=== PATIENT | male | born 1950 | race Caucasian/White ===

== ENCOUNTER 2016-02-11 18:45 | Inpatient (IN) | payer MEDICARE, OTHER ==
[~2016-02-11] VITALS: Ht 162.6 cm; Wt 69.2 kg
[~2016-02-11 18:45] MED LIST: BENZ1TAB PO; DIVA250T8 OR; DIVA500T8 OR; LITH300 OR; LORA1TAB PO; TRIF2TAB PO; ZIPR80CA PO
[2016-02-11 19:10] VITALS: BP 149/69; PULSE 70; RESP 15; TEMP 98.1
--- NOTE | 2016-02-11 19:56 | PD ---
HPI Chief Complaint: Psychiatric Symptoms Time Seen by Provider: 19:53 Travel History International Travel<30 days: No Contact w/Intl Traveler<30days: No Traveled to known affect area: No History of Present Illness HPI Patient is a 65-year-old male with a history of schizophrenia, bipolar disorder , depression and anxiety and previous suicide attempts brought out a Venegas act for suicidality. The patient reportedly told someone at the prison he resides at that he wants " pills". He states that he has nothing to live for. Per the report and his family all in her 60s and he feels that it is time for him to go. He denies any attempts. He denies any current medical problems. In fact when asked if anything is wrong the only thing he is insistent on receiving his a cup of coffee and " pills". He denies any noncompliance with his medication. He denies taking any excessive medication or ethanol or illicit drugs. He does smoke. PFSH Past Medical History Medical History: Unable to Obtain Arthritis: Yes Blood Disorders: No Bipolar Disorder: Yes Anxiety: Yes Depression: Yes Cancer: No Cardiovascular Problems: Yes High Cholesterol: Yes Chest Pain: Yes Congestive Heart Failure: Yes Diabetes: No Diminished Hearing: No Endocrine: No Gastrointestinal Disorders: Yes GERD: Yes Genitourinary: No Hypertension: Yes Immune Disorder: No Musculoskeletal: Yes Neurologic: No Psychiatric: Yes Reproductive: No Respiratory: No Schizophrenia: Yes Ulcer: Yes Past Surgical History Surgical History: Unable to Obtain Social History Alcohol Use: No Tobacco Use: Yes (1PPD) Substance Use: No Allergies-Medications (Allergen,Severity, Reaction): Coded Allergies: No Known Allergies (Verified , 02/11/16) Reported Meds & Prescriptions Reported Meds & Active Scripts Active Reported Ziprasidone Hcl 80 Mg Cap 80 Mg PO BID Trifluoperazine Hcl (Trifluoperazine HCl) 2 Mg Tab 2 Mg PO BID Lorazepam 1 Mg Tab 1 Mg PO BID [place] Carbonate 300 Mg Tab 600 Mg OR HS [place] Carbonate 300 Mg Tab 300 Mg OR DAILY Divalproex Sodium 500 Mg Tab 500 Mg OR HS Divalproex Sodium 250 Mg Tab 250 Mg OR DAILY Cogentin (Benztropine Mesylate) 2 Mg Tab 2 Mg PO HS Review of Systems General / Constitutional: No: Fever Cardiovascular: No: Chest Pain or Discomfort Respiratory: No: Shortness of Breath Gastrointestinal: No: Abdominal Pain Neurologic: No: Syncope Psychiatric: Positive: Other (see the history of present illness) Physical Exam Narrative GENERAL: Well-developed and well-nourished adult male in no acute distress. SKIN: Warm and dry. Good turgor without tenting. HEAD: Normocephalic and atraumatic. EYES: PERRL bilaterally, 5mm. EOMI bilaterally. No injection or icterus present. No proptosis. Lids without edema or erythema. ENT: Buccal mucosa pink and moist. Oropharynx free of erythema, tonsillar hypertrophy, masses, swelling, asymmetry and exudates. Uvula midline and airway patent. NECK: Supple, no meningeal signs. Trachea midline, no JVD. No cervical or facial lymphadenopathy. CARDIOVASCULAR: Regular rate and rhythm without murmurs, rubs, clicks or gallops. Radial and posterior tibial pulses 2+ bilaterally. No pedal edema. RESPIRATORY: Clear to auscultation bilaterally with symmetrical rise and fall, no distress or use of accessory muscles. GASTROINTESTINAL: Non-tender, non-distended. Normal bowel sounds all 4 quadrants. No masses or organomegaly present. MUSCULOSKELETAL: No gait disturbances. Patient freely moving all four extremities spontaneously. Extremities without clubbing, cyanosis, or edema. No obvious deformities. NEUROLOGIC: CN II-XII grossly intact. Awake and alert. Motor grossly within normal limits. Normal speech. PSYCHIATRIC: Argumentative. Suicidal. Data Data Last Documented VS Vital Signs Date Time Temp Pulse Resp B/P Pulse Ox O2 Delivery O2 Flow Rate FiO2 02/11/16 19:10 98.1 70 15 149/69 Orders Complete Blood Count With Diff (02/11/16 19:51) Comprehensive Metabolic Panel (02/11/16 19:51) Drug Screen, Random Urine (02/11/16 19:51) Alcohol (Ethanol) (02/11/16 19:51) Salicylates (Aspirin) (02/11/16 19:51) Tylenol (Acetaminophen) (02/11/16 19:51) Psych Screen (02/11/16 19:51) Aucilla (Li) (02/11/16 19:51) Valproic Acid (Depakene) (02/11/16 21:29) Labs Laboratory Tests Test 02/11/16 20:20 White Blood Count 6.6 TH/MM3 Red Blood Count 3.87 MIL/MM3 Hemoglobin 12.4 GM/DL Hematocrit 37.3 % Mean Corpuscular Volume 96.4 FL Mean Corpuscular Hemoglobin 32.2 PG Mean Corpuscular Hemoglobin 33.4 % Concent Red Cell Distribution Width 13.6 % Platelet Count 207 TH/MM3 Mean Platelet Volume 10.2 FL Neutrophils (%) (Auto) 48.3 % Lymphocytes (%) (Auto) 31.9 % Monocytes (%) (Auto) 13.5 % Eosinophils (%) (Auto) 5.8 % Basophils (%) (Auto) 0.5 % Neutrophils # (Auto) 3.2 TH/MM3 Lymphocytes # (Auto) 2.1 TH/MM3 Monocytes # (Auto) 0.9 TH/MM3 Eosinophils # (Auto) 0.4 TH/MM3 Basophils # (Auto) 0.0 TH/MM3 CBC Comment DIFF FINAL Differential Comment Sodium Level 133 MEQ/L Potassium Level 4.4 MEQ/L Chloride Level 100 MEQ/L Carbon Dioxide Level 26.2 MEQ/L Anion Gap 7 MEQ/L Blood Urea Nitrogen 10 MG/DL Creatinine 1.16 MG/DL Estimat Glomerular Filtration 63 ML/MIN Rate Random Glucose 76 MG/DL Calcium Level 8.4 MG/DL Total Bilirubin 0.2 MG/DL Aspartate Amino Transf 11 U/L (AST/SGOT) Alanine Aminotransferase 12 U/L (ALT/SGPT) Alkaline Phosphatase 68 U/L Total Protein 6.4 GM/DL Albumin 3.4 GM/DL Salicylates Level 1.9 MG/DL Urine Opiates Screen NEG Acetaminophen Level LESS THAN 2.0 MCG/ML Urine Barbiturates Screen NEG Valproic Acid (Depakene) Level 31 MCG/ML Urine Amphetamines Screen NEG Urine Benzodiazepines Screen NEG [place] Level 0.8 MEQ/L Urine Cocaine Screen NEG Urine Cannabinoids Screen NEG Ethyl Alcohol Level LESS THAN 3 MG/DL MDM Medical Decision Making Medical Screen Exam Complete: Yes Emergency Medical Condition: Yes Interpretation(s) Laboratory Tests Test 02/11/16 20:20 White Blood Count 6.6 TH/MM3 (4.0-11.0) Red Blood Count 3.87 MIL/MM3 (4.50-5.90) Hemoglobin 12.4 GM/DL (13.0-17.0) Hematocrit 37.3 % (39.0-51.0) Mean Corpuscular Volume 96.4 FL (80.0-100.0) Mean Corpuscular Hemoglobin 32.2 PG (27.0-34.0) Mean Corpuscular Hemoglobin 33.4 % Concent (32.0-36.0) Red Cell Distribution Width 13.6 % (11.6-17.2) Platelet Count 207 TH/MM3 (150-450) Mean Platelet Volume 10.2 FL (7.0-11.0) Neutrophils (%) (Auto) 48.3 % (16.0-70.0) Lymphocytes (%) (Auto) 31.9 % (9.0-44.0) Monocytes (%) (Auto) 13.5 % (0.0-8.0) Eosinophils (%) (Auto) 5.8 % (0.0-4.0) Basophils (%) (Auto) 0.5 % (0.0-2.0) Neutrophils # (Auto) 3.2 TH/MM3 (1.8-7.7) Lymphocytes # (Auto) 2.1 TH/MM3 (1.0-4.8) Monocytes # (Auto) 0.9 TH/MM3 (0-0.9) Eosinophils # (Auto) 0.4 TH/MM3 (0-0.4) Basophils # (Auto) 0.0 TH/MM3 (0-0.2) CBC Comment DIFF FINAL Differential Comment Sodium Level 133 MEQ/L (136-145) Potassium Level 4.4 MEQ/L (3.5-5.1) Chloride Level 100 MEQ/L (98-107) Carbon Dioxide Level 26.2 MEQ/L (21.0-32.0) Anion Gap 7 MEQ/L (5-15) Blood Urea Nitrogen 10 MG/DL (7-18) Creatinine 1.16 MG/DL (0.60-1.30) Estimat Glomerular Filtration 63 ML/MIN (>89) Rate Random Glucose 76 MG/DL (74-106) Calcium Level 8.4 MG/DL (8.5-10.1) Total Bilirubin 0.2 MG/DL (0.2-1.0) Aspartate Amino Transf 11 U/L (15-37) (AST/SGOT) Alanine Aminotransferase 12 U/L (12-78) (ALT/SGPT) Alkaline Phosphatase 68 U/L (45-117) Total Protein 6.4 GM/DL (6.4-8.2) Albumin 3.4 GM/DL (3.4-5.0) Salicylates Level 1.9 MG/DL (2.8-20.0) Urine Opiates Screen NEG (NEG) Acetaminophen Level LESS THAN 2.0 MCG/ML (10.0-30.0) Urine Barbiturates Screen NEG (NEG) Valproic Acid (Depakene) Level 31 MCG/ML (50-100) Urine Amphetamines Screen NEG (NEG) Urine Benzodiazepines Screen NEG (NEG) Aucilla Level 0.8 MEQ/L (0.5-1.5) Urine Cocaine Screen NEG (NEG) Urine Cannabinoids Screen NEG (NEG) Ethyl Alcohol Level LESS THAN 3 MG/DL (0-5) Differential Diagnosis SI versus depression versus anxiety versus bipolar disorder versus schizophrenia versus substance abuse versus mood disorder versus personality disorder versus adjustment disorder Narrative Course Patient is a 65-year-old male who is afebrile, nontoxic appearing and has normal vitals other than slightly elevated blood pressure presenting on a Venegas act for suicidality requesting " pills ". He has a history of schizophrenia, bipolar disorder, depression and anxiety. He has no medical complaints at this time and his exam is unremarkable. Ordered labs including valproic acid and lithium level as he is on these medications. H&H 12.4/37.3. Metabolic panel shows sodium 133, creatinine 1.16, calcium 8.4, Tylenol less than 2, slipped with 1.9, ethanol less than 3. Urine drug screen negative. Aucilla 0.8 which to the therapeutic window and valproate 31 which is low. Patient is medically cleared to proceed with psych evaluation. Diagnosis Primary Impression: Suicidal ideations Condition: Stable Meliton Novak III Feb 11, 2016 19:56
[2016-02-11 20:58] LABS: AUTOMATED NEUTROPHIL # 3.2 TH/MM3 (1.8-7.7); BASOPHIL % 0.5 % (0.0-2.0); EOSINOPHIL # 0.4 TH/MM3 (0-0.4); EOSINOPHIL % 5.8 % (0.0-4.0); HEMATOCRIT 37.3 % (39.0-51.0); HEMO FLAGS DIFF FINAL; LYMPH % 31.9 % (9.0-44.0); LYMPHOCYTE # 2.1 TH/MM3 (1.0-4.8); MEAN CELL VOLUME 96.4 FL (80.0-100.0); MEAN CORPUSCULAR HEMOGLOBIN 32.2 PG (27.0-34.0); MEAN CORPUSCULAR HGB CONC 33.4 % (32.0-36.0); MONO % 13.5 % (0.0-8.0); NEUT % 48.3 % (16.0-70.0); PLATELET COUNT 207 TH/MM3 (150-450); RED BLOOD COUNT 3.87 MIL/MM3 (4.50-5.90); RED CELL DISTRIBUTION WIDTH 13.6 % (11.6-17.2); WHITE BLOOD COUNT 6.6 TH/MM3 (4.0-11.0)
[2016-02-11 21:09] LABS: AMPHETAMINE, URINE NEG (NEG); BARBITURATES, URINE NEG (NEG); COCAINE, URINE NEG (NEG)
[2016-02-11 21:33] LABS: ACETAMINOPHEN LESS THAN 2.0 MCG/ML (10.0-30.0); ALKALINE PHOSPHATASE 68 U/L (45-117); ALT (GPT) 12 U/L (12-78); ANION GAP 7 MEQ/L (5-15); AST (GOT) 11 U/L (15-37); BICARBONATE 26.2 MEQ/L (21.0-32.0); BLOOD UREA NITROGEN 10 MG/DL (7-18); CHLORIDE 100 MEQ/L (98-107); GLOMERULAR FILTRATION RATE 63 ML/MIN (>89); POTASSIUM 4.4 MEQ/L (3.5-5.1); SODIUM (NA) 133 MEQ/L (136-145); TOTAL BILIRUBIN ADULT 0.2 MG/DL (0.2-1.0)
[2016-02-12 01:10] VITALS: BP 137/69; PULSE 61; RESP 18; TEMP 98.7; O2SAT 98
[2016-02-12] MEDS ORDERED: MELO-1 PO (01:38)
[2016-02-12] MEDS ORDERED: AMIT8CAP6 PO (01:38)
[2016-02-12] MEDS ORDERED: TRAZ100T4 PO (01:38)
[2016-02-12] MEDS ORDERED: OXYB5TAB10 PO (01:38)
[2016-02-12 02:17] VITALS: BP 129/69; PULSE 72; RESP 18; O2SAT 96
[2016-02-12] MEDS ORDERED: OXYBUTYNIN CHLORIDE 5 MG TAB PO ONE (04:00)
[2016-02-12 04:49] LABS: BLOOD, URINE NEG (NEG); GLUCOSE,URINE NEG (NEG); KETONE, URINE NEG (NEG); NITRITE,URINE NEG (NEG); PH, URINE 6.5 (5.0-8.5); URINE COLOR LIGHT-YELLOW (YELLW/STRAW)
[2016-02-12 04:50] LABS: COMMENT (UR) CULT NOT INDICATED; CULTURE IF INDICATED CULT NOT INDICATED
[2016-02-12 06:18] VITALS: BP 137/65; PULSE 68; RESP 18; TEMP 98.1; O2SAT 98
[2016-02-12 10:32] VITALS: BP 161/72; PULSE 68; RESP 18; O2SAT 97
[2016-02-12 14:45] VITALS: BP 172/81; PULSE 73; RESP 18; O2SAT 98
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
[2016-02-12 18:09] VITALS: BP 168/86; PULSE 72; RESP 18; O2SAT 95
[2016-02-12] MEDS: IBUPROFEN 800 MG TAB PO PRN (23:43)
[2016-02-12] MEDS ORDERED: traZODone HCL 100 MG TAB PO PRN (23:45)
[2016-02-12] MEDS ORDERED: LORazepam 1 MG TAB PO PRN (23:45)
[2016-02-12] MEDS ORDERED: MAGNESIUM HYDROXIDE SUSP 30 ML CUP PO PRN (23:45)
[2016-02-12] MEDS ORDERED: LORazepam 2 MG/ML VIAL IM PRN (23:45)
[2016-02-13 06:11] VITALS: BP 166/95; PULSE 71; RESP 18; O2SAT 98
--- NOTE | 2016-02-13 15:30 | HHI.PYPN ---
Subjective Remarks Patient seen and examined with nursing staff. Please note that this document also services my second opinion for involuntary psychiatric hospitalization under the Venegas act. Chart reviewed. Case discussed with nurse. On my examination today, patient says "I know you all are against me because he won't let me get my pill. I hate it!" Affect is dysphoric and irritable. Patient appears internally stimulated. He says "my meds stopped working." I endeavor to obtain some past psychiatric history but he declines to provided saying "it's in my records." I do note that the patient has several prior psychiatric admissions within our system. He believes his cousin has some sort of mental illness issues. He denies any chemical dependency issues except he is a tobacco smoker. Unable to obtain much in the way of social history. Pt has written a note for me to read. It reads, "You all are Mothers, fuckers, nigers, bassers and you all eat my shit and drink urine for good Siged and writen by Sanya Zuniga the first the best and the greatest of all time ::" Review of Systems ROS Limitations: Psychotic, Poor Historian Other No somatic complaints. Objective Alert: Yes [place]: Person, Place Mood: Angry, Oppositional Affect: Restricted (dysphoric, irritable) Memory Intact: Comment (not formally assessed) Hallucinations: Other (appears internally preoccupied) Delusions: Yes Delusion Type: Paranoid Suicidal: Ideation (see above. Once a " pill." No reported urge to hurt himself on the inpatient psychiatric unit.) Homicidal: Ideation (no HI voiced) Insight/Judgement Poor Remarks Thought processes fairly linear. Speech within normal limits for rate, tone and volume. No motoric abnormalities noted. Labs Labs reviewed. I note patient has a mild normocytic anemia on CBC. CMP is significant for mild hyponatremia and mildly decreased GFR. Vitals/IOs Vital Signs Date Time Temp Pulse Resp B/P Pulse Ox O2 Delivery O2 Flow Rate FiO2 02/13/16 06:11 71 18 166/95 98 02/12/16 14:45 Room Air 02/12/16 06:18 98.1 Assessment & Plan Problem List: (1) Schizoaffective disorder, bipolar type ICD Code: F25.0 Assessment & Plan Medication list from patient's facility reviewed. Given low Depakote level and ongoing psychiatric symptomatology, I will titrate his Depakote ER to 500 mg twice daily. I will continue his Cogentin. I will continue his lithium and the level is therapeutic. I will continue his scheduled Ativan. I will hold his Stelazine as it is not stocked in the pharmacy. I will continue his Geodon. We could consider replacing the Stelazine with another typical antipsychotic, and I note from reviewing the electronic medical record that he has been on Haldol in the past. Regarding the medical medications I will continue his Dulcolax and PPI as well as oxybutynin but will hold his Mobic in light of his mildly decreased GFR. Recheck a CBC and BMP in the morning. Consult to the hospitalist to assess the status of patient's medical issues. Continue other medications and care as ordered. PT consult. I concur that the patient meets criteria for involuntary psychiatric hospitalization under the Venegas act and who completed second opinion paperwork. Justification for Cont. Inpt. Impairments in safety, reality testing, social functioning, risk for decompensation. Discharge Planning Pending psychiatric stabilization Request HC Surrog/Guard Advoc?: Yes Kareem Kennedy MD Feb 13, 2016 15:29
[2016-02-13] MEDS: ZIPRASIDONE HCL 80 MG CAP PO SCH (17:40)
[2016-02-13] MEDS: IBUPROFEN 800 MG TAB PO PRN (17:41)
--- NOTE | 2016-02-13 18:21 | PD.CONS ---
HPI Service [facility] Consult Requested By Psychiatric services Reason for Consult Ongoing medical issues Primary Care Physician Unknown Diagnoses: History of Present Illness This is a 65-year-old male patient with past medical history which includes ? CHF, hypertension, GERD, schizophrenia and bipolar. Patient is currently inpatient psychiatric center we have been consulted for assistance with, "ongoing medical issues." Patient is a poor historian therefore information gathered from physical exam as well as prior computerized charting. Patient reports his mind is going bad and he no longer, "once to go on." The patient reports that when he urinates he gets a little stops and then urinates more. Patient denies dysuria. Patient does report nocturia. 2-3 times per night. Patient denies chest pain shortness of breath nausea vomiting diarrhea constipation fevers or chills. Review of Systems Constitutional: DENIES: Fever, Chills Eyes: DENIES: Blurred vision Respiratory: DENIES: Shortness of breath Gastrointestinal: DENIES: Abdominal pain Other All other systems reviewed and negative except as mentioned above in history of present illness Past Family Social History Allergies: Coded Allergies: No Known Allergies (Verified , 02/11/16) Past Medical History ? CHF, hypertension, GERD, schizophrenia and bipolar Past Surgical History Right shoulder surgery Reported Medications Pulmonary reconciliation has not been completed patient does not know his home medications have asked nurse to verify with [facility] Active Ordered Medications Current Medications Medications (Trade) Dose Ordered Sig/Eliud Route Start Time Stop Time Status Last Admin (Motrin) 800 mg Q6H PRN PO 02/12/16 22:30 02/13/16 17:41 (Ativan) 1 mg Q6H PRN PO 02/12/16 23:45 02/13/16 00:24 (Ativan Inj) 1 mg Q6H PRN IM 02/12/16 23:45 (Milk Of Magnesia Liq) 30 ml DAILY PRN PO 02/12/16 23:45 (Cogentin) 2 mg Q12HR PO 02/13/16 21:00 (Dulcolax Ec) 10 mg DAILY PO 02/14/16 09:00 (Depakote Dr) 500 mg BID PO 02/13/16 21:00 (Protonix) 40 mg DAILY PO 02/14/16 09:00 ([place] Carbonate) 300 mg Q12HR PO 02/13/16 21:00 (Ativan) 1 mg Q12HR PO 02/13/16 21:00 (Ditropan) 5 mg Q12HR PO 02/13/16 21:00 (Desyrel) 200 mg HS PO 02/13/16 21:00 (Geodon) 80 mg BIDPC PO 02/13/16 18:00 02/13/16 17:40 Family History Unable to obtain at this time Social History Patient currently lives in a [facility] Smokes one pack cigarettes per day Physical Exam Vital Signs Vital Signs Date Time Temp Pulse Resp B/P Pulse Ox O2 Delivery O2 Flow Rate FiO2 02/13/16 06:11 71 18 166/95 98 Physical Exam GENERAL: This is a well-nourished, well-developed patient, in no apparent distress. SKIN: No rashes, ecchymoses or lesions. Cool and dry. HEAD: Atraumatic. Normocephalic. No temporal or scalp tenderness. EYES: Extraocular motions intact. No scleral icterus. No injection or drainage. ENT: Nose without bleeding, purulent drainage or septal hematoma. Throat without erythema, tonsillar hypertrophy or exudate. Uvula midline. Airway patent. NECK: Trachea midline. No JVD or lymphadenopathy. Supple, nontender, no meningeal signs. CARDIOVASCULAR: Regular rate and rhythm without murmurs, gallops, or rubs. RESPIRATORY: Clear to auscultation. Breath sounds equal bilaterally. No wheezes , rales, or rhonchi. GASTROINTESTINAL: Abdomen soft, non-tender, nondistended. No hepato-splenomegaly , or palpable masses. No guarding. MUSCULOSKELETAL: Extremities without clubbing, cyanosis, or edema. No joint tenderness, effusion, or edema noted. No calf tenderness. Negative Homans sign bilaterally. NEUROLOGICAL: Awake and alert. Motor and sensory grossly within normal limits. Five out of 5 muscle strength in all muscle groups. Normal speech. Result Diagram: 02/14/1684402/[id number]/16844 Assessment and Plan Assessment and Plan 65-year-old male patient with past medical history which includes CHF, hypertension, GERD, schizophrenia and bipolar. Patient is currently inpatient psychiatric center we have been consulted for assistance with, "ongoing medical issues." Patient is currently psychotic therefore information gathered from physical exam as well as prior computerized charting. Schizophrenia, bipolar, suicidal ideations to be managed per primary team Difficulty with urination- question BPH UA reviewed by myself as an Dr. King negative for UTI BUN 10 creatinine 1.16 estimated GFR 63 Ordered post void residual checks CHF- Review of records reveal CHF history unknown EF.- Is unclear whether patient actually has CHF or not Does not appear to be in acute exacerbation, 2-D echocardiogram Hypertension- will start Norvasc 5 mg daily, continue to monitor vital signs GERD continue Protonix Will check lipid profile DVT prophylaxis patient is ambulatory Discussed with patient and RN Written by Denise Fernandez, acting as scribe for Dr. King on 02/13/16 at 19:02. Attending Statement The documentation accurately reflects the work performed [id number] by me on 02/13/16 at 19:02. Denise Fernandez Feb 13, 2016 18:21 Aldo Rasmussen MD Feb 16, 2016 01:08
[2016-02-13 19:25] VITALS: BP 133/61; PULSE 51; RESP 18; O2SAT 98
[2016-02-13] MEDS: traZODone HCL 100 MG TAB PO SCH (20:17)
[2016-02-13] MEDS: LORazepam 1 MG TAB PO SCH (20:17)
[2016-02-13] MEDS: LITHIUM CARBONATE 300 MG CAP PO SCH (20:17)
[2016-02-13] MEDS: BENZTROPINE MESYLATE 2 MG TAB PO SCH (20:17)
[2016-02-13] MEDS: DIVALPROEX DR 500 MG TABEC PO SCH (20:17)
[2016-02-13] MEDS: OXYBUTYNIN CHLORIDE 5 MG TAB PO SCH (20:18)
[2016-02-14] MEDS: IBUPROFEN 800 MG TAB PO PRN ×2 (03:57→21:52)
[2016-02-14 05:37] VITALS: BP 142/66; PULSE 81; RESP 16; TEMP 97.7; O2SAT 98
[2016-02-14] MEDS: DIVALPROEX DR 500 MG TABEC PO SCH ×2 (08:48→21:51)
[2016-02-14] MEDS: PANTOPRAZOLE SOD 40 MG DELAYED RELEASE TAB PO SCH (08:48)
[2016-02-14] MEDS: OXYBUTYNIN CHLORIDE 5 MG TAB PO SCH ×2 (08:48→21:51)
[2016-02-14] MEDS: ZIPRASIDONE HCL 80 MG CAP PO SCH (08:48)
[2016-02-14] MEDS: BISACODYL EC 5 MG TABEC PO SCH (08:48)
[2016-02-14] MEDS: BENZTROPINE MESYLATE 2 MG TAB PO SCH ×2 (08:48→21:51)
[2016-02-14] MEDS: LITHIUM CARBONATE 300 MG CAP PO SCH ×2 (08:49→21:51)
[2016-02-14] MEDS: LORazepam 1 MG TAB PO SCH ×2 (08:49→21:51)
[2016-02-14] MEDS ORDERED: amLODIPine BESYLATE 5 MG TAB PO SCH ×2 (09:00)
[2016-02-14 09:12] LABS: AUTOMATED NEUTROPHIL # 3.4 TH/MM3 (1.8-7.7); BASOPHIL # 0.1 TH/MM3 (0-0.2); BASOPHIL % 1.7 % (0.0-2.0); EOSINOPHIL # 0.3 TH/MM3 (0-0.4); EOSINOPHIL % 5.8 % (0.0-4.0); HEMATOCRIT 40.5 % (39.0-51.0); HEMO FLAGS DIFF FINAL; LYMPH % 25.7 % (9.0-44.0); LYMPHOCYTE # 1.5 TH/MM3 (1.0-4.8); MEAN CELL VOLUME 96.6 FL (80.0-100.0); MEAN CORPUSCULAR HEMOGLOBIN 31.7 PG (27.0-34.0); MEAN CORPUSCULAR HGB CONC 32.8 % (32.0-36.0); MONO % 9.4 % (0.0-8.0); NEUT % 57.4 % (16.0-70.0); PLATELET COUNT 208 TH/MM3 (150-450); RED BLOOD COUNT 4.19 MIL/MM3 (4.50-5.90); RED CELL DISTRIBUTION WIDTH 13.2 % (11.6-17.2); WHITE BLOOD COUNT 5.8 TH/MM3 (4.0-11.0)
[2016-02-14 09:30] LABS: BICARBONATE 28.3 MEQ/L (21.0-32.0)
[2016-02-14 09:41] LABS: HDL CHOLESTEROL 106.7 MG/DL (40.0-60.0)
--- NOTE | 2016-02-14 09:57 | HHI.PYPN ---
Subjective Remarks Patient seen and examined with nursing staff. Chart reviewed. Case discussed with nursing staff who reports that patient is somewhat intrusive but otherwise no behavioral problems. On my examination today, the patient is somewhat irritable. He says "I want to kill myself. I'm a vegetable. I want to overdose on the pill." He is fairly irascible and when I try to engage him in conversation he spits back acerbically "you got sawdust in your head, boy ?" When I ask if he is having thoughts about hurting himself on the unit he again says that he would like to take the pill. When I ask if he might hurt himself in other ways, he denies. I explained we will not be providing him with the pill while he is here. Denies side effects from medications. Review of Systems ROS Limitations: Poor Historian Other No physical complaints today. Objective Alert: Yes [place]: Person, Place Mood: Angry, Oppositional Affect: Restricted (remains dysphoric and irritable) Memory Intact: Comment (not formally assessed) Hallucinations: Other (again internally preoccupied) Delusions: Yes Delusion Type: Paranoid Suicidal: Ideation (see above) Homicidal: Ideation (none) Insight/Judgement Poor Remarks Thought processes fairly linear. Speech a little angry but otherwise within normal limits. No motoric abnormalities noted. No hand tremor, no cogwheeling , no dystonias, no dyskinesias. Labs Test 02/14/16 08:45 White Blood Count 5.8 TH/MM3 Red Blood Count 4.19 MIL/MM3 Hemoglobin 13.3 GM/DL Hematocrit 40.5 % Mean Corpuscular Volume 96.6 FL Mean Corpuscular Hemoglobin 31.7 PG Mean Corpuscular Hemoglobin 32.8 % Concent Red Cell Distribution Width 13.2 % Platelet Count 208 TH/MM3 Mean Platelet Volume 9.6 FL Neutrophils (%) (Auto) 57.4 % Lymphocytes (%) (Auto) 25.7 % Monocytes (%) (Auto) 9.4 % Eosinophils (%) (Auto) 5.8 % Basophils (%) (Auto) 1.7 % Neutrophils # (Auto) 3.4 TH/MM3 Lymphocytes # (Auto) 1.5 TH/MM3 Monocytes # (Auto) 0.5 TH/MM3 Eosinophils # (Auto) 0.3 TH/MM3 Basophils # (Auto) 0.1 TH/MM3 CBC Comment DIFF FINAL Differential Comment Sodium Level 137 MEQ/L Potassium Level 4.0 MEQ/L Chloride Level 100 MEQ/L Carbon Dioxide Level 28.3 MEQ/L Anion Gap 9 MEQ/L Blood Urea Nitrogen 15 MG/DL Creatinine 0.99 MG/DL Estimat Glomerular Filtration 76 ML/MIN Rate Random Glucose 113 MG/DL Calcium Level 8.9 MG/DL Triglycerides Level 62 MG/DL Cholesterol Level 208 MG/DL LDL Cholesterol 89 MG/DL HDL Cholesterol 106.7 MG/DL Cholesterol/HDL Ratio 1.94 RATIO Thyroid Stimulating Hormone 0.797 uIU/ML 3rd Gen Labs reviewed. Anemia resolved. Renal function improved. TSH within normal limits. Hyponatremia resolved. Vitals/IOs Vital Signs Date Time Temp Pulse Resp B/P Pulse Ox O2 Delivery O2 Flow Rate FiO2 02/14/16 05:37 97.7 81 16 142/66 98 02/12/16 14:45 Room Air Assessment & Plan Problem List: (1) Schizoaffective disorder, bipolar type ICD Code: F25.0 Assessment & Plan Titrate patient's Geodon to target ongoing psychotic symptoms. Continue other psychotropics as ordered and plan to check a Depakote level middle of this week. I have instructed the nursing staff to move the patient into a camera room adjacent to the nursing station for closer monitoring. Hospitalist performance consultant input appreciated. Continue other medications and care as ordered. Justification for Cont. Inpt. Safety impairments. Impairments in social functioning. Risk for decompensation. Discharge Planning Pending psychiatric stabilization. Request HC Surrog/Guard Advoc?: Yes Kareem Kennedy MD Feb 14, 2016 09:57
[2016-02-14] MEDS: ZIPRASIDONE HCL 20 MG CAP PO SCH (17:47)
[2016-02-14] MEDS: traZODone HCL 100 MG TAB PO SCH (21:52)
[2016-02-15] MEDS ORDERED: ALUMINUM/MAGNESIUM/SIMETH 30 ML CUP PO PRN (00:30)
[2016-02-15] MEDS: IBUPROFEN 800 MG TAB PO PRN (03:50)
[2016-02-15 06:07] VITALS: BP 140/85; PULSE 101; RESP 18; TEMP 97.4; O2SAT 98
[2016-02-15] MEDS: LITHIUM CARBONATE 300 MG CAP PO SCH ×2 (08:52→21:08)
[2016-02-15] MEDS: LORazepam 1 MG TAB PO SCH ×2 (08:52→21:08)
[2016-02-15] MEDS: ZIPRASIDONE HCL 20 MG CAP PO SCH ×2 (08:52→18:00)
[2016-02-15] MEDS: DIVALPROEX DR 500 MG TABEC PO SCH ×2 (08:52→21:08)
[2016-02-15] MEDS: BISACODYL EC 5 MG TABEC PO SCH (08:52)
[2016-02-15] MEDS: BENZTROPINE MESYLATE 2 MG TAB PO SCH ×2 (08:52→21:08)
[2016-02-15] MEDS: OXYBUTYNIN CHLORIDE 5 MG TAB PO SCH ×2 (08:52→21:08)
[2016-02-15] MEDS: PANTOPRAZOLE SOD 40 MG DELAYED RELEASE TAB PO SCH (08:52)
--- NOTE | 2016-02-15 10:21 | HHI.PYPN ---
Subjective Remarks Patient seen and examined with counselor Kiki. Chart reviewed. Case discussed with nursing staff reports patient has been pleasant and in good behavioral control. On my examination today, the patient seems much more calm and pleasant. He denies any desire to take a pill or otherwise complete suicide. "That's just what I say when I get upset, but now I don't want it." Denies side effects from meds. Review of Systems Other No reported physical complaints today Objective Alert: Yes [place]: Person, Place Mood: Calm Affect: Euthymic Memory Intact: Comment (not formally assessed) Hallucinations: Other (no AVH) Delusions: No Delusion Type: Other (no delusions) Suicidal: Ideation (denies SI) Homicidal: Ideation (no HI) Insight/Judgement Improved versus admission Remarks Thought process linear. Speech within normal limits for rate, tone and volume. No motoric abnormalities. No extremity weakness. No facial palsy. Labs Labs reviewed. No new labs. Vitals/IOs Vital Signs Date Time Temp Pulse Resp B/P Pulse Ox O2 Delivery O2 Flow Rate FiO2 02/15/16 06:07 97.4 101 18 140/85 98 02/12/16 14:45 Room Air Assessment & Plan Problem List: (1) Schizoaffective disorder, bipolar type ICD Code: F25.0 Assessment & Plan Patient's demeanor seems significantly improved today. I will continue current medications as ordered and observe overnight to ensure these changes are lasting. Continue other medications and care as ordered. Depakote level has been ordered for Monday. Justification for Cont. Inpt. Ongoing monitoring for impairments in safety Discharge Planning Return to facility, possibly as early as tomorrow if patient remains improved. Request HC Surrog/Guard Advoc?: Yes Kareem Kennedy MD Feb 15, 2016 10:21
[2016-02-15 18:41] VITALS: BP 124/72; PULSE 67; RESP 18; TEMP 97.7; O2SAT 99
[2016-02-15] MEDS: traZODone HCL 100 MG TAB PO SCH (21:08)
[2016-02-16 06:00] VITALS: BP 134/80; PULSE 87; RESP 15; TEMP 97.7; O2SAT 97
[2016-02-16] MEDS: PANTOPRAZOLE SOD 40 MG DELAYED RELEASE TAB PO SCH (08:59)
[2016-02-16] MEDS: ZIPRASIDONE HCL 20 MG CAP PO SCH ×2 (08:59→17:58)
[2016-02-16] MEDS: DIVALPROEX DR 500 MG TABEC PO SCH ×2 (09:00→21:17)
[2016-02-16] MEDS: OXYBUTYNIN CHLORIDE 5 MG TAB PO SCH ×2 (09:00→21:17)
[2016-02-16] MEDS: LITHIUM CARBONATE 300 MG CAP PO SCH ×2 (09:00→21:17)
[2016-02-16] MEDS: BENZTROPINE MESYLATE 2 MG TAB PO SCH ×2 (09:00→21:17)
[2016-02-16] MEDS: LORazepam 1 MG TAB PO SCH ×2 (09:00→21:17)
[2016-02-16] MEDS: BISACODYL EC 5 MG TABEC PO SCH (09:00)
[2016-02-16] MEDS: IBUPROFEN 800 MG TAB PO PRN (09:01)
--- NOTE | 2016-02-16 09:04 | EC ---
Study Study Date:02/15/2016 STUDY CONCLUSIONS SUMMARY - Left ventricle: The cavity size was normal. Wall thickness was normal. Systolic function was normal. The estimated ejection fraction was in the range of 55% to 60%. Wall motion was normal; there were no regional wall motion abnormalities. Doppler parameters are consistent with abnormal left ventricular relaxation (grade 1 diastolic dysfunction). - Mitral valve: Mild regurgitation. - Tricuspid valve: Mild regurgitation. - Pulmonary arteries: PA peak pressure: 35mm Hg (S). If LV function is below 40, please consider prescribing an ACEI or ARB or document rationale for non-use. PROCEDURE DATA STUDY STATUS: Elective. Procedure: Transthoracic echocardiography. Image quality was good. Scanning was performed from the parasternal, apical, and subcostal acoustic windows. Study completion: The patient tolerated the procedure well. Transthoracic echocardiography. M-mode, complete 2D, complete spectral Doppler, and color Doppler. Patient status: Inpatient. CARDIAC ANATOMY LEFT VENTRICLE: The cavity size was normal. Wall thickness was normal. Systolic function was normal. The estimated ejection fraction was in the range of 55% to 60%. Wall motion was normal; there were no regional wall motion abnormalities. Doppler parameters are consistent with abnormal left ventricular relaxation (grade 1 diastolic dysfunction). AORTIC VALVE: Trileaflet; normal thickness leaflets. Doppler: Transvalvular velocity was within the normal range. There was no stenosis. No regurgitation. AORTA: Aortic root: The aortic root was normal in size. MITRAL VALVE: Structurally normal valve. Doppler: Transvalvular velocity was within the normal range. There was no evidence for stenosis. Mild regurgitation. LEFT ATRIUM: The atrium was normal in size. RIGHT VENTRICLE: The cavity size was normal. Wall thickness was normal. PULMONIC VALVE: Doppler: Transvalvular velocity was within the normal range. There was no evidence for stenosis. No regurgitation. TRICUSPID VALVE: Structurally normal valve. Doppler: Transvalvular velocity was within the normal range. Mild regurgitation. PULMONARY ARTERY: The main pulmonary artery was normal-sized. Systolic pressure was within the normal range. RIGHT ATRIUM: The atrium was normal in size. PERICARDIUM: There was no pericardial effusion. SYSTEMIC VEINS: Inferior vena cava: The vessel was normal in size. BASIC MEASUREMENTS ADULT Normal Left ventricle LV internal dimension, ED, chordal level, *42.8 mm 43-52 PLAX LV internal dimension, ES, chordal level, 25.3 mm 23-38 PLAX Fractional shortening, chordal level, PLAX 41 % >29 LV posterior wall thickness, ED 10.7 mm IVS/LVPW ratio, ED 1.08 <1.3 Ventricular septum Septal thickness, ED 11.6 mm Aortic valve Leaflet separation 22 mm 15-26 Right ventricle RV internal dimension, ED, PLAX 28.6 mm 19-38 BASIC MEASUREMENTS ADULT Normal Aortic valve Leaflet separation 22 mm 15-26 Aorta Root diameter, ED 34 mm 20-37 Left atrium Anterior-posterior dimension, ES 40 mm 19-40 LA/aortic root ratio 1.18 DOPPLER MEASUREMENTS ADULT Normal Main pulmonary artery Pressure, S *35 mm Hg =30 Tricuspid valve Regurgitant peak velocity 248 cm/s Peak RV-RA gradient, S 25 mm Hg Systemic veins Estimated CVP 10 mm Hg Right ventricle RV pressure, S *35 mm Hg <30 LEGEND: Mean values are shown as u=mean value. Asterisk (*) kelsey values outside specified normal range. Prepared and signed by Adis Núñez [id number]
--- NOTE | 2016-02-16 15:10 | HHI.PYPN ---
Subjective Remarks Patient seen and examined with counselor. Chart reviewed. Case discussed in treatment team. On my examination today, the patient denies any SI, HI or AVH. He denies any side effects from medications. He is agreeable to returning to the facility from which he came. Has some somatic complaints, detailed below, but otherwise no particular complaints. Review of Systems ROS Limitations: Poor Historian Other Complains of left shoulder and bilateral foot pain. Unclear if this is part of patient's chronic pain complaints. Objective Alert: Yes [place]: Person, Place (at least) Mood: Calm Affect: Blunted Memory Intact: Comment (not assessed) Hallucinations: Other (denies AVH) Delusions: No Delusion Type: Other (no evident delusional material) Suicidal: Ideation (again denies suicidal ideation) Homicidal: Ideation (denies homicidal ideation) Insight/Judgement Poor Remarks No abnormal motor movements noted. Labs Labs reviewed. No new labs. Vitals/IOs Vital Signs Date Time Temp Pulse Resp B/P Pulse Ox O2 Delivery O2 Flow Rate FiO2 02/15/16 18:41 97.7 67 18 124/72 99 02/12/16 14:45 Room Air Assessment & Plan Problem List: (1) Schizoaffective disorder, bipolar type ICD Code: F25.0 Assessment & Plan Continue current psychotropics as ordered. Depakote level ordered for tomorrow morning. Continue other medications and care is ordered. I will ask the hospitalist to evaluate the patient for clearance for discharge and to address patient's complaints today. Justification for Cont. Inpt. Discharge planning. Risk for decompensation. Discharge Planning Transition back to referring facility. Most likely within the next day or 2. Request HC Surrog/Guard Advoc?: Yes Kareem Kennedy MD Feb 16, 2016 15:10
--- NOTE | 2016-02-16 17:31 | HHI.PR ---
Subjective Remarks Follow-up for questionable CHF No shortness of breath, no chest pain. Not coughing. No palpitations. Objective Vitals Vital Signs Date Time Temp Pulse Resp B/P Pulse Ox O2 Delivery O2 Flow Rate FiO2 02/15/16 18:41 97.7 67 18 124/72 99 Result Diagram: 02/14/16 0845 02/14/16 0845 Procedures Not in distress, well-nourished, looks stated age PERRL, pink conjunctiva without injection, anicteric Nose without bleeding, airway patent, oropharynx clear Supple neck, no masses or thyromegaly, trachea midline Normal rate and regular rhythm, no murmurs gallops or rubs appreciated. Decreased symmetrically but with crackles in the right base. Normal bowel sounds, soft, non-tender, nondistended, no guarding. Extremities without clubbing, cyanosis, or edema. No rash of generalized distribution. Skin is warm and dry. AAO x3, no cranial nerve deficits, moves all 4 extremities, no focal neurologic deficits Normal mood, appropriate affect A/P Assessment and Plan 65-year-old male patient with past medical history which includes CHF, hypertension, GERD, schizophrenia and bipolar. Patient is currently inpatient psychiatric center we have been consulted for assistance with, "ongoing medical issues." Patient is currently psychotic therefore information gathered from physical exam as well as prior computerized charting. Schizophrenia, bipolar, suicidal ideations to be managed per primary team Likely BPH-urinalysis unremarkable. Creatinine is stable. Start Flomax. Diastolic CHF-echocardiogram done, revealed a preserved ejection fraction, still symptomatic, will start Lasix, follow BMP in a few days. Hypertension, controlled-continue Norvasc 5 mg daily, continue to monitor vital signs GERD continue Protonix DVT prophylaxis patient is ambulatory Ezra Valdes MD Feb 16, 2016 17:31
[2016-02-16] MEDS: TAMSULOSIN HCL 0.4 MG CAP PO SCH (17:58)
[2016-02-16] MEDS: FUROSEMIDE 20 MG TAB PO SCH (17:58)
[2016-02-16 18:00] VITALS: BP 104/65; PULSE 63; RESP 18; TEMP 97.4; O2SAT 98
[2016-02-16] MEDS: traZODone HCL 100 MG TAB PO SCH (21:17)
[2016-02-17 05:33] VITALS: BP 129/73; PULSE 58; RESP 18; TEMP 97.3; O2SAT 98
[2016-02-17] MEDS: OXYBUTYNIN CHLORIDE 5 MG TAB PO SCH (08:50)
[2016-02-17] MEDS: ZIPRASIDONE HCL 20 MG CAP PO SCH (08:50)
[2016-02-17] MEDS: PANTOPRAZOLE SOD 40 MG DELAYED RELEASE TAB PO SCH (08:50)
[2016-02-17] MEDS: FUROSEMIDE 20 MG TAB PO SCH (08:50)
[2016-02-17] MEDS: LORazepam 1 MG TAB PO SCH (08:50)
[2016-02-17] MEDS: TAMSULOSIN HCL 0.4 MG CAP PO SCH (08:50)
[2016-02-17] MEDS: BENZTROPINE MESYLATE 2 MG TAB PO SCH (08:50)
[2016-02-17] MEDS: LITHIUM CARBONATE 300 MG CAP PO SCH (08:50)
[2016-02-17] MEDS: DIVALPROEX DR 500 MG TABEC PO SCH (08:50)
[2016-02-17] MEDS: IBUPROFEN 800 MG TAB PO PRN (08:51)
[2016-02-17] MEDS: BISACODYL EC 5 MG TABEC PO SCH (08:51)
[2016-02-17] MEDS ORDERED: OXYB5TAB10 PO (11:45)
[2016-02-17] MEDS ORDERED: DIVA500T PO (11:45)
[2016-02-17] MEDS ORDERED: FURO20TA PO (11:45)
[2016-02-17] MEDS ORDERED: LITH300C2 PO (11:45)
[2016-02-17] MEDS ORDERED: ZIPR20 PO (11:45)
[2016-02-17] MEDS ORDERED: TAMS5CAP PO (11:45)
[2016-02-17] MEDS ORDERED: PANT40TA3 PO (11:45)
[2016-02-17] MEDS ORDERED: FLEE5TAB PO (11:45)
[2016-02-17] MEDS ORDERED: TRAZ50TA12 PO (11:45)
[2016-02-17] MEDS ORDERED: BENZ2TAB PO (11:45)
--- NOTE | 2016-02-17 11:45 | HHI.DS ---
Psychiatry Discharge Summary Inpatient Psychiatric care?: Yes Advance Directive: Yes Mental Health AdvanceDirective: No Health Care Proxy: No Admission Admission Date Feb 12, 2016 at 15:57 Admission Diagnosis: (1) Schizoaffective disorder, bipolar type ICD Code: F25.0 Brief History This 65 yo WM was BIB [facility] on a Ven[place] Act stating "Mr Zuniga advised that he no longer wishes to live. He stated that he wants pills and poison. He advised all his family in their 60s and it is his time to go." When seen in [facility] after about 20 hours in the hospital the patient still continued to voice the same thoughts, specifically " I want to in peace" "I got certain rights [to take] pills" The patient was also angry and aggressive stating "Im going to marco everyone for malpractice" and lunging at this interviewer suddenly, but stopping before hitting my face. The patient reported multiple symptoms of depression "all my life" although he says its worse now, and more than 20 psychiatric hospitalizations in his lifetime. At present he is also having AH of two voices "like always" which he refused to describe further. When asked why he is more depressed now he says "my meds stopped working" and "my body is giving out of old age". The patient reports a history of bullying in school which left him with symptoms of PTSD. Tobacco Use In Past 30 Days: No Tobacco Past 30 Days Alcohol Use: Never Hospital Course Patient was admitted to a locked, inpatient psychiatric unit. General medical consultation was obtained. Appropriate precautions were in place throughout patient's hospital stay. Patient was seen and examined daily on the unit by psychiatry and also visited by counselor. Medications were adjusted. Patient had significant improvement in his presenting psychiatric symptomatology. His mood significantly improved and he began to consistently deny any suicidal ideation. There was no evidence of any suicidality or homicidality on the inpatient unit. Patient's behavior improved with the benefit of psychotropic medication treatment. On the day of discharge: Case discussed with nurse. No behavioral issues noted. On my examination today, the patient feels ready for discharge from the inpatient psychiatric unit. He denies any SI, HI or AVH. He denies any side effects from medications. He denies any physical complaints today. Weighing the acute, chronic, and protective factors and based on the available evidence, I judged reasonable degree of medical certainty that the patient is at low imminent risk of harm to self or others or mental illness as defined under the Ven[place] act and his level of function is adequate for outpatient care. The patient has maximized benefit from this inpatient psychiatric hospital stay and will be returned to his facility in stable condition with psychiatric follow-up as arranged by counselor. Patient is also to follow-up with primary care. I have ordered a follow-up ammonia level in a week, and if ammonia level remains elevated or if there are signs of encephalopathy, could consider adding Carnitor or lactulose. Results Blood Pressure 129 / 73 Vital Signs Date Time Temp Pulse Resp B/P Pulse Ox O2 Delivery O2 Flow Rate FiO2 02/17/16 05:33 97.3 58 18 129/73 98 Laboratory Tests Test 02/17/16 07:12 Ammonia 35 MCMOL/L (11-32) Laboratory Results Test 02/14/16 02/17/16 08:45 07:12 Triglycerides Level 62 MG/DL (42-150) Cholesterol Level 208 MG/DL (120-200) LDL Cholesterol 89 MG/DL (0-99) HDL Cholesterol 106.7 MG/DL (40.0-60.0) Valproic Acid (Depakene) Level 60 MCG/ML (50-100) Summary of Procedures None done Imaging None done Pending results at discharge: No Medications # of Antipsychotic meds at D/C: 1 Approp Antipsych med options 1 - Minimum of three failed multiple trials of monotherapy. 2 - Documented plan to taper to monotherapy due to previous use of multiple meds OR cross-taper in progress at D/C. 3 - Documentation of augmentation of Clozapine. 4 - Justification other than those listed in allowable values 1-3, document here : Discharge Discharge Date: Feb 17, 2016 Discharge Diagnosis: (1) Schizoaffective disorder, bipolar type Diagnosis: Principal (stabilized) ICD Code: F25.0 GAF on discharge is 55 Mental Status Exam at Disch Patient is casually dressed. He is fairly well groomed. He is awake and alert and oriented to person and hospital at least. No evidence of any delirium. No abnormal motor movements noted. Speech is within normal limits for rate, tone and volume. Language and fund of knowledge seem adequate and appropriate for age. Mood is improved versus admission although affect remains a little blunted. Thought processes linear. No loosening of associations. No evident delusions. Denies AVH. Denies suicidal or homicidal ideation. Insight and judgment are fair. Pt Condition on Discharge: Stable Discharge Disposition: [facility] Discharge Instructions Diet Instructions: As Tolerated, No Restrictions Activities you can perform: Weight Bearing as Edita Scheduled Appointment: as per counselor's notes New Orders: AMMONIA - 1 Week New Medications: Benztropine (Benztropine) 2 Mg Tab 2 MG PO Q12HR Side effect management Days 15 Ref [address] (Bisacodyl EC) 5 Mg Tabec 10 MG PO DAILY Constipation Days 15 Ref [address] (Divalproex DR) 500 Mg Tabdr 500 MG PO BID Mental Health Days 15 Ref 1 TAB Furosemide (Furosemide) 20 Mg Tab 20 MG PO DAILY Health Days 7 Ref 0 TAB [place] Carbonate ([place] Carbonate) 300 Mg Cap 300 MG PO Q12HR Mental Health Days 15 Ref 1 CAP Oxybutynin (Ditropan) 5 Mg Tab 5 MG PO Q12HR Health Days 15 Ref 1 TAB Pantoprazole (Pantoprazole) 40 Mg Tab 40 MG PO DAILY Health Days 15 Ref 1 TAB Tamsulosin (Flomax) 0.4 Mg Cap 0.4 MG PO DAILY Health Days 15 Ref 1 CAP Trazodone (Trazodone) 50 Mg Tab 200 MG PO HS Mental Health Days 15 Ref 1 TAB Ziprasidone (Geodon) 20 Mg Cap 100 MG PO BIDPC Mental Health Days 15 Ref 1 CAP Discharge Time <= 30 minutes Discharge/Advance Care Plan Health Problems: (1) Schizoaffective disorder, bipolar type Goals to promote your health * To prevent worsening of your condition and complications * To maintain your health at the optimal level Directions to meet your goals Take your medications as prescribed Follow your dietary instruction Follow activity as directed Keep your appointments as scheduled Take your immunizations and boosters as scheduled If your symptoms worsen call your PCP, if no PCP go to Urgent Care Center or Emergency Room For 05/09 questions related to your inpatient stay or results of tests pending at discharge, please contact Dr. Kareem Kennedy at Smoking is Dangerous to Your Health. Avoid second hand smoking Kareem Kennedy MD Feb 17, 2016 11:45
== END 2016-02-17 14:40 | DRG 885 ==
LOC: NEPE 18:45 → NEDA 02-12 15:57 → H270 02-12 17:45
PROVIDERS: ADMIT Psychiatry & Neurology Psychiatry; ATTEND Psychiatry & Neurology Psychiatry
DX: F25.0 Schizoaffective disorder, bipolar type (principal); R45.851 Suicidal ideations; I11.0 Hypertensive heart disease with heart failure; I50.30 Unspecified diastolic (congestive) heart failure; I10 Essential (primary) hypertension; K21.9 Gastro-esophageal reflux disease without esophagitis; N40.1 Benign prostatic hyperplasia with lower urinary tract symptoms; R39.198 Other difficulties with micturition; F17.210 Nicotine dependence, cigarettes, uncomplicated
CPT/HCPCS: 80048; 80053; 80061; 80164; 80178; 80301; 80320; 80329; 81001; 82140; 84443; 85025; 93306; 99284; G0479